=== PATIENT | female | born 1965 | race Hispanic/Latino ===

== ENCOUNTER 2021-07-10 22:55 | Inpatient (IN) | payer BC, OTHER ==
[~2021-07-10] VITALS: Ht 172.7 cm; Wt 94.3 kg
[2021-07-10 23:17] LABS: APPEARANCE,URINE Clear (CLEAR); BILIRUBIN,URINE Negative (NEGATIVE); COLOR,URINE Yellow (YELLOW); GLUCOSE, URINE (UA) Negative (NEGATIVE); KETONES,URINE Negative (NEGATIVE); LEUKOCYTE ESTERASE ,URINE Large (NEGATIVE); NITRATE,URINE Negative (NEGATIVE); OCCULT BLOOD,URINE Trace (NEGATIVE); PH,URINE 8.5 (5.0-8.0); PROTEIN,URINE POS 1+ mg/dL (NEGATIVE)
[2021-07-10 23:28] LABS: BASOPHILS % (AUTO) 0.2 % (0.0-5.0); EOSINOPHILS % (AUTO) 0.2 % (0.0-8.0); HEMATOCRIT 41.1 % (36-48); LYMPHOCYTES % (AUTO) 3.8 % (21.0-51.0); MEAN CORPUSCULAR HEMOGLOBIN 27.8 pg (27.0-33.0); MEAN CORPUSCULAR HGB CONC 32.8 g/dL (32.0-36.0); MEAN CORPUSCULAR VOLUME 84.7 fL (79-99); MONOCYTES % (AUTO) 6.5 % (3.0-13.0); PLATELET COUNT (AUTO) 193 K/uL (130-400); RED BLOOD CELL COUNT(AUTO) 4.85 MIL/uL (4.00-5.50); RED CELL DISTRIBUTION WIDTH 14.4 % (11.0-15.5); WHITE BLOOD COUNT (AUTO) 13.6 K/uL (4.8-10.8)
[2021-07-10] MEDS ORDERED: ONDANSETRON 4MG INJ IVP ONE (23:30)
[2021-07-10] MEDS ORDERED: 0.9%NACL 1000ML 1,000 ML IV ONE ×2 (23:30→23:36)
[2021-07-10] MEDS ORDERED: METOCLOPRAMIDE 10 MG/2 ML VIAL IVP ONE (23:30)
[2021-07-10] MEDS ORDERED: KETOROLAC 30MG VIAL (30MG/ML) IV SCH (23:30)
[2021-07-10 23:34] LABS: BACTERIA,URINE Rare /HPF (None Seen); MUCUS,URINE Rare LPF (None Seen); SQUAMOUS EPITHELIAL CELL,UR Rare /HPF (0-2)
[2021-07-10] MEDS ORDERED: METOCLOPRAMIDE 10 MG/2 ML VIAL ONE (23:35)
[2021-07-10] MEDS ORDERED: ONDANSETRON 4MG INJ ONE (23:35)
[2021-07-10] MEDS ORDERED: KETOROLAC 30MG VIAL (30MG/ML) ONE (23:35)
[2021-07-10 23:51] LABS: ALBUMIN 3.8 g/dL (3.5-5.0); BILIRUBIN,TOTAL 0.5 mg/dL (0.2-1.0); CREATININE 1.3 mg/dL (0.5-1.5); POTASSIUM 4.5 mmol/L (3.5-5.1); TOTAL PROTEIN, SERUM 8.1 g/dL (6.0-8.3)
[2021-07-11] MEDS ORDERED: ACETAMINOPHEN 500 MG TABLET PO ONE (01:30)
[2021-07-11] MEDS ORDERED: CEFTRIAXONE 2GM VIAL IVP ONE (01:30)
[2021-07-11] MEDS ORDERED: 0.9%NACL 1000ML 1,000 ML IV ONE (01:30)
[2021-07-11] MEDS ORDERED: ACETAMINOPHEN 325 MG TAB PO PRN (02:30)
[2021-07-11] MEDS ORDERED: MORPHINE 2 MG SYG IV PRN (02:30)
[2021-07-11] MEDS ORDERED: NITROGLYCERIN 0.4 MG SL TAB SL PRN (02:30)
[2021-07-11] MEDS ORDERED: ONDANSETRON 4MG INJ IV PRN (02:30)
[2021-07-11] MEDS ORDERED: MORPHINE 4 MG SYG IV PRN (02:30)
[2021-07-11 02:37] LABS: CREATININE,URINE RANDOM 75 mg/dL (30-135); SODIUM,URINE RANDOM 116 mmol/l (40-220)
[2021-07-11] MEDS: 0.9%NACL 1000ML 1,000 ML IV SCH ×2 (03:03→10:30)
[2021-07-11] MEDS: ACETAMINOPHEN 325 MG TAB PO PRN ×2 (07:30→14:00)
[2021-07-11] MEDS ORDERED: FAMOTIDINE 20MG VIAL IV SCH (09:00)
[2021-07-11] MEDS ORDERED: 0.9%NACL 50ML 50 ML IV ONE (10:21)
[2021-07-11] MEDS ORDERED: ZOSYN 3.375GM+NS 50ML 3.38 GM in 0.9%NACL 50ML 50 ML IV SCH (10:30)
[2021-07-11] MEDS: ZOSYN 3.375GM+NS 50ML 50 ML IV SCH ×2 (10:30→13:00)
[2021-07-11 13:58] VITALS: BP 104/59
[2021-07-11] MEDS ORDERED: ZOSYN 3.375GM+NS 50ML 50 ML IV SCH (21:00)
[2021-07-12] MEDS ORDERED: CEFTRIAXONE 1G VIAL IV SCH (02:30)
== END 2021-07-11 17:03 | disposition left against medical advice (07) | DRG 690 ==
LOC: EDH 22:55 → EDHIP 07-11 02:04 → OBSVTOIN 07-11 02:04 → EDHIP 07-11 17:03
PROVIDERS: ADMIT Internal Medicine; ATTEND Internal Medicine
DX: N13.6 Pyonephrosis (principal); Z20.822 Contact with and (suspected) exposure to COVID-19; N17.9 Acute kidney failure, unspecified; I10 Essential (primary) hypertension; E11.9 Type 2 diabetes mellitus without complications; D17.9 Benign lipomatous neoplasm, unspecified; Z87.442 Personal history of urinary calculi
CPT/HCPCS: 36415; 74176; 76770; 80053; 81001; 82570; 83605; 83690; 84300; 85025; 87040; 87077; 87088; 87186; 87635; G0378; J0696; J1885; J2405; J2543; J2765; J3490; J7030